=== PATIENT | female | born 1960 | race African-American/Black ===

== ENCOUNTER 2016-12-03 13:40 | Emergency (ER) | payer MEDICAID, OTHER ==
[~2016-12-03] VITALS: Ht 165.1 cm; Wt 45.0 kg
[2016-12-03 15:30] VITALS: BP 118/68
== END 2016-12-03 16:55 | disposition home or self-care (01) ==
LOC: ER 13:51
DX: R25.1 Tremor, unspecified (principal)
CPT/HCPCS: 82962; 99283